=== PATIENT | female | born 1975 | race Caucasian/White ===

== ENCOUNTER → 2020-09-28 | Day surgery (SDC) | payer BC ==
[~2020-09-28] MED LIST: ADDERALL 10 MG10 MG PO; CYCLOPENTOLATE HCL 1% OPTH SOLN 2ML BTL ONE; FENTANYL CITRATE/PF 100MCG/2 ML INJ ONE; MIDAZOLAM HCL 2 MG/2 ML VIAL ONE; NP THYROID60 MG PO; OR PHACO EYE KIT ONE; PREOP PHACO EYE KIT ONE
[2020-09-28 12:50] VITALS: BP 105/77
== END | disposition home or self-care (01) ==
LOC: OR 09:53
PROVIDERS: ATTEND Ophthalmology
DX: H25.11 Age-related nuclear cataract, right eye (principal); F98.8 Other specified behavioral and emotional disorders with onset usually occurring in childhood and adolescence; Z86.16 Personal history of COVID-19; Z01.812 Encounter for preprocedural laboratory examination; Z20.822 Contact with and (suspected) exposure to COVID-19
CPT/HCPCS: 66984; J2250; J3010; U0002; V2788

== ENCOUNTER → 2020-10-12 | Day surgery (SDC) | payer BC ==
[~2020-10-12] MED LIST changes: +CHONDR SU A NA/HYALUR SOD 1 EACH KIT IO ONE
[2020-10-12 13:15] VITALS: BP 107/76
== END | disposition home or self-care (01) ==
LOC: OR 10:21
PROVIDERS: ATTEND Ophthalmology
DX: H26.9 Unspecified cataract (principal); H52.12 Myopia, left eye; F98.8 Other specified behavioral and emotional disorders with onset usually occurring in childhood and adolescence; Z01.812 Encounter for preprocedural laboratory examination; Z20.822 Contact with and (suspected) exposure to COVID-19; Z86.16 Personal history of COVID-19
CPT/HCPCS: 66984; J2250; J3010; U0002